=== PATIENT | female | born 1955 | race Caucasian/White ===

== ENCOUNTER → 2017-06-25 | Outpatient (CLI) | payer OTHER | LOC: RAD 10:05 | DX: K46.9 Unspecified abdominal hernia without obstruction or gangrene (principal); N93.9 Abnormal uterine and vaginal bleeding, unspecified; R30.9 Painful micturition, unspecified | CPT/HCPCS: 74177 ==

== ENCOUNTER 2017-06-30 18:32 | Emergency (ER) | payer OTHER ==
[~2017-06-30] VITALS: Ht 165.1 cm; Wt 73.5 kg
[2017-06-30 19:32] LABS: EOSINOPHIL (%) 1.2 % (0-5); EOSINOPHIL COUNT 0.1 K/uL (0-0.3); HEMATOCRIT 36.2 % (36.0-46.0); IMMATURE GRANULOCYTE (%) 0.3 % (0.0-0.7); INSTRUMENT ABS NEUTROPHIL CT 4.8 K/uL; LYMPHOCYTE COUNT 1.8 K/uL (1.0-2.8); MCH 31.4 PG (29.0-34.0); MCHC 34.5 G/DL (30.0-36.0); MEAN PLAT.VOLUME 9.9 uM^3 (9.5-12.4); MONOCYTE (%) 8.7 % (3-12); MONOCYTE COUNT 0.6 K/uL (0-0.8); NEUTROPHIL (%) 65.2 % (45-76); NEUTROPHIL COUNT 4.8 K/uL (1.8-6.4); PLATELET COUNT 246 K/uL (156-360); RBC DIS.WIDTH-CV 12.9 % (11.8-14.6); RED BLOOD COUNT 3.98 M/uL (3.80-5.20); WHITE BLOOD COUNT 7.4 K/uL (4.1-10.2)
[2017-06-30 19:37] LABS: PROTHROMBIN TIME 11.2 SEC (10.2-12.9)
[2017-06-30 19:40] LABS: PTT 33.4 SEC (25-37)
[2017-06-30 19:53] LABS: TROP-I INTERPRETATION NEGATIVE; TROPONIN-I < 0.01 ng/mL (0.0-0.30)
[2017-06-30 19:55] LABS: CHLORIDE 106 mEq/L (99-109); POTASSIUM 4.1 mEq/L (3.7-5.4); SODIUM 143 mEq/L (136-147)
[2017-06-30 19:57] LABS: GLUCOSE 97 mg/dL (70-99)
[2017-06-30 19:58] LABS: ANION GAP 15 MEQ/L (2-14)
[2017-06-30 20:01] LABS: GFR ESTIMATE (CALCULATED) > 59 mL/min/
[2017-06-30 20:02] LABS: UREA NITROGEN (BUN) 23 mg/dL (9-23)
[2017-07-01 02:22] VITALS: BP 135/75
== END 2017-07-01 02:31 ==
LOC: EME 18:32
PROVIDERS: Emergency Medicine
DX: R07.89 Other chest pain (principal); R19.7 Diarrhea, unspecified; K44.9 Diaphragmatic hernia without obstruction or gangrene; F32.9 Major depressive disorder, single episode, unspecified; I10 Essential (primary) hypertension; K21.9 Gastro-esophageal reflux disease without esophagitis
CPT/HCPCS: 71010; 80048; 83605; 84484; 85025; 85610; 85730; 93005; 99281; 99285; J7030

== ENCOUNTER 2017-07-19 13:07 | Emergency (ER) | payer OTHER ==
[~2017-07-19] VITALS: Ht 165.1 cm; Wt 74.0 kg
[2017-07-19 13:46] LABS: HEMATOCRIT 37.6 % (36.0-46.0); MCH 31.3 PG (29.0-34.0); MCHC 34.8 G/DL (30.0-36.0); MEAN PLAT.VOLUME 9.8 uM^3 (9.5-12.4); PLATELET COUNT 271 K/uL (156-360); RBC DIS.WIDTH-CV 12.4 % (11.8-14.6); RBC DIS.WIDTH-SD 40.8 % (39-53); RED BLOOD COUNT 4.18 M/uL (3.80-5.20); WHITE BLOOD COUNT 5.9 K/uL (4.1-10.2)
[2017-07-19 13:55] LABS: CHLORIDE 101 mEq/L (99-109); POTASSIUM 3.3 mEq/L (3.7-5.4); SODIUM 140 mEq/L (136-147)
[2017-07-19 13:56] LABS: GLUCOSE 120 mg/dL (70-99)
[2017-07-19 13:58] LABS: ANION GAP 11 MEQ/L (2-14)
[2017-07-19 14:00] LABS: GFR ESTIMATE (CALCULATED) > 59 mL/min/; SERUM ETHYL ALCOHOL < 10 mg/dL
[2017-07-19 14:01] LABS: UREA NITROGEN (BUN) 12 mg/dL (9-23)
[2017-07-19 17:17] LABS: AMPHETAMINE NEGATIVE (500 ng/mL); BARBITURATES NEGATIVE (200 ng/mL); BENZODIAZEPINES NEGATIVE (150 ng/mL); COCAINE NEGATIVE (150 ng/mL); INTERNAL CONTROLS VALID? YES; METHADONE NEGATIVE (200 ng/mL); METHAMPHETAMINE NEGATIVE (500 ng/mL); OPIATES (MORPHINE) NEGATIVE (100 ng/mL); OXYCODONE NEGATIVE (100 ng/mL); PHENCYCLIDINE NEGATIVE (25 ng/mL); PROPOXYPHENE NEGATIVE (300 ng/mL); THC CANNABINOIDS NEGATIVE (50 ng/mL); TRICYCLIC ANTIDEPRESSANTS PRESUMPTIVE POSITIVE (300 ng/mL)
[2017-07-19 18:43] LABS: ADD MIUA? NO; BILIRUBIN NEGATIVE; BLOOD NEGATIVE; COLOR YELLOW ((YELLOW)); GLUCOSE (STRIP) NEGATIVE; KETONES NEGATIVE; LEUKOCYTES NEGATIVE; NITRITE NEGATIVE; PROTEIN (STRIP) NEGATIVE; SPECIFIC GRAVITY 1.011 (1.000-1.030); UROBILINOGEN 0.2 MG/DL (0.2-1.0)
[2017-07-20] MEDS ORDERED: CIPROFLOXACIN500 M1 PO (00:22)
[2017-07-20] MEDS ORDERED: METRONIDAZOLE500 MG PO (00:23)
[2017-07-20] MEDS ORDERED: ZOLPIDEM TARTRA10 MG PO (00:24)
[2017-07-20] MEDS ORDERED: FUROSEMIDE20 MG PO (00:25)
[2017-07-20] MEDS ORDERED: LISINOPRIL10 MG PO (00:26)
[2017-07-20] MEDS ORDERED: CARVEDILOL12.5 MG PO (00:27)
[2017-07-20 16:15] VITALS: BP 122/77
== END 2017-07-20 17:33 ==
LOC: EME 13:07
PROVIDERS: Emergency Medicine
DX: F32.9 Major depressive disorder, single episode, unspecified (principal); R45.851 Suicidal ideations; F41.9 Anxiety disorder, unspecified; I11.0 Hypertensive heart disease with heart failure; I50.9 Heart failure, unspecified; K58.9 Irritable bowel syndrome, unspecified; Z88.0 Allergy status to penicillin; Z87.19 Personal history of other diseases of the digestive system
CPT/HCPCS: 80048; 81003; 85027; 90837; 93005; 99281; 99285; G0480